=== PATIENT | male | born 1975 | race Caucasian/White ===

== ENCOUNTER 2018-03-28 10:03 | Emergency (ER) | payer OTHER ==
[2018-03-28] MEDS: KETOROLAC 15 MG INJ IM (10:55)
== END 2018-03-28 12:56 | disposition home or self-care (01) ==
LOC: E/R 10:03
DX: T63.481A Toxic effect of venom of other arthropod, accidental (unintentional), initial encounter (principal)
CPT/HCPCS: 96372; 99284-25